=== PATIENT | female | born 1985 | race Caucasian/White ===

== ENCOUNTER 2016-09-07 06:24 | Day surgery (SDC) | payer MEDICAID ==
[2016-09-06 09:19] LABS: HEMATOCRIT 38.5 % (36.0-48.0); MCH 31.5 pg (26.0-34.0); MCHC 33.8 g/dL (31.0-37.0); MCV 93.2 fL (80.0-100.0); MEAN PLATELET VOLUME 8.5 fL (7.4-10.4); RBC 4.13 10x6/uL (4.00-5.40); RDW 13.1 % (11.5-14.5); WBC 6.9 10x3/uL (4.8-10.8)
[2016-09-06 09:28] LABS: CALC OSMOLALITY 243 mosm/kg (275-300); CALCIUM 8.8 mg/dL (8.5-10.1); CARBON DIOXIDE 30.2 mmol/L (21.0-32.0); CHLORIDE - SERUM 98 mmol/L (98-107); CREATININE - SERUM 0.6 mg/dL (0.6-1.3); GLUCOSE 84 mg/dL (74-106); POTASSIUM - SERUM 3.6 mmol/L (3.5-5.1); SODIUM 122 mmol/L (136-145); UREA NITROGEN 10 mg/dL (7-18); eGFR NON AFRICAN AMERICAN > 90 mL/min (90-120)
[~2016-09-07] VITALS: Ht 167.6 cm; Wt 79.8 kg
[~2016-09-07 06:24] MED LIST: ATIVAN0.5 MG PO; IBUPROFEN600 MG PO; INDOCIN25 MG PO; LEVSIN/ANASP0.125 MG PO; LOPRESSOR25 MG PO; LOW-OGESTREL1 TAB PO; PERCOCET 5-3251 TAB PO; PROZAC40 MG PO; SINGULAIR10 MG PO; SYMBICORT 16010.2 GM INH; SYNTHROID125 MCG PO; ULTRAM50 MG PO; VENTOLIN HFA18 GM INH; XANAX0.5 MG PO
[2016-09-07 06:58] VITALS: BP 116/71; Ht 167.6 cm; Wt 79.8 kg
[2016-09-07] MEDS ORDERED: HYDROCODON-ACE1 EAC7 PO (09:00)
--- NOTE | 2016-09-07 16:38 | NUR ---
1230--PT VOIDS WITHOUT DIFFICULTY, IV DC'D. MATTHEW RN 1250--DISCHARGE INSTRUCTIONS GIVEN, PT VERBALIZES UNDERSTANDING. PT OFF UNIT VIA WC. MATTHEW RUELAS
== END 2016-09-07 12:50 | disposition home or self-care (01) ==
LOC: D.OPS 06:24 → D.PAN 08:00 → D.OPS 12:50
PROVIDERS: Anesthesiology
DX: K43.9 Ventral hernia without obstruction or gangrene (principal); Z01.812 Encounter for preprocedural laboratory examination

== ENCOUNTER → 2017-04-19 10:40 | Outpatient (CLI) | payer MEDICAID ==
[2016-09-07 06:58] VITALS: BMI 28.4
[~2017-04-19 10:40] MED LIST changes: +HYDROCODON-ACE1 EAC7 PO
== END | disposition home or self-care (01) ==
LOC: D.CT 10:40
DX: R43.2 Parageusia (principal); R10.9 Unspecified abdominal pain